=== PATIENT | female | born 1980 | race Caucasian/White ===

== ENCOUNTER 2017-10-20 08:53 | Inpatient (IN) | payer MEDICAID, OTHER ==
[~2017-10-20] VITALS: Ht 162.6 cm; Wt 107.3 kg
[~2017-10-20 08:53] MED LIST: DIVA250T4 PO; FERR325T22 PO; RISP3TAB44 PO
[2017-10-20 11:21] LABS: BASOPHILS # (AUTO) 0.08 K/uL (0.00-0.20); EOSINOPHILS # (AUTO) 0.13 K/uL (0.00-0.70); EOSINOPHILS % (AUTO) 1.49 % (1.0-6.0); HEMATOCRIT 33.2 % (36-46); HEMOGLOBIN 10.6 g/dL (12.0-16.0); LYMPHOCYTES % (AUTO) 24.3 % (22.0-44.0); MEAN CORPUSCULAR HEMOGLOBIN 24.2 pg (26.0-34.0); MEAN CORPUSCULAR VOLUME 76 fL (80-100); MONOCYTES # (AUTO) 0.6 K/uL (0.1-1.0); MONOCYTES % (AUTO) 7.2 % (2.0-9.0); NEUTROPHILS # (AUTO) 5.5 K/uL (1.8-7.7); NEUTROPHILS % (AUTO) 66.1 % (40.0-70.0); PLATELET COUNT (AUTO) 329 K/uL (150-450); RED BLOOD CELL COUNT(AUTO) 4.37 MIL/uL (4.00-5.20); RED CELL DISTRIBUTION WIDTH 17.5 % (11.5-14.5)
[2017-10-20 11:32] LABS: ANION GAP 10 mmol/L (8-16); CALCIUM, TOTAL 9.1 mg/dL (8.8-10.5); CARBON DIOXIDE 27 mmol/L (22-29); CHLORIDE 102 mmol/L (98-107); CREATININE 0.65 mg/dL (0.60-1.30); GLOMERULAR FILTR. RATE CALC > 60 mL/min (>60); GLUCOSE,RANDOM 91 mg/dL (70-110); POTASSIUM 3.9 mmol/L (3.5-5.1); SODIUM SERUM 139 mmol/L (136-145); UREA NITROGEN, BLOOD 10 mg/dL (7-18)
[2017-10-20 11:38] LABS: ALANINE AMINOTRANSFERASE 29 U/L (12-78); ALBUMIN 3.5 g/dL (3.4-5.0); ALKALINE PHOSPHATASE 99 U/L (46-116); ASPARTATE AMINOTRANSFERASE 23 U/L (15-37); BILIRUBIN,TOTAL 0.5 mg/dL (0.1-1.0); TOTAL PROTEIN, SERUM 8.1 g/dL (6.4-8.2)
[2017-10-20 11:58] LABS: AMPHET/METH SCREEN,URINE NEGATIVE (NEGATIVE); BARBITURATE SCREEN, URINE NEGATIVE (NEGATIVE); BENZODIAZEPINES SCREEN,URINE NEGATIVE (NEGATIVE); CANNABINOID SCREEN,URINE NEGATIVE (NEGATIVE); COCAINE SCREEN,URINE NEGATIVE (NEGATIVE); METHADONE SCREEN, URINE NEGATIVE (NEGATIVE); OPIATE SCREEN,URINE NEGATIVE (NEGATIVE)
[2017-10-20 12:01] LABS: PHENCYCLIDINE SCREEN,URINE NEGATIVE (NEGATIVE)
[2017-10-20] MEDS ORDERED: HALOPERIDOL 5 MG TABLET PO PRN (15:00)
[2017-10-20] MEDS ORDERED: ZOLPIDEM TARTRATE 10 MG TABLET PO PRN (15:00)
[2017-10-20] MEDS ORDERED: PERMETHRIN 5% 60 GM CREAM TP ONE (15:30)
[2017-10-20 18:27] VITALS: BP 147/76
[2017-10-20 19:42] VITALS: BP 130/67
[2017-10-20] MEDS: LORazepam 2 MG TABLET PO PRN (20:23)
[2017-10-20] MEDS ORDERED: INFLUENZA VIRUS VACCINE QVS 2017-18 (3YR+)/PF 60 MCG/0.5 ML SYRINGE IM ONE (20:45)
[2017-10-20 21:10] VITALS: BP 130/67
[2017-10-21 00:50] VITALS: BP 137/80
[2017-10-21 08:19] VITALS: BP 133/68
[2017-10-21] MEDS: DIVALPROEX SODIUM 500 MG DR TABLET PO SCH ×2 (09:00→16:44)
[2017-10-21] MEDS: RisperiDONE 2 MG TABLET PO SCH ×2 (09:00→16:44)
[2017-10-21] MEDS: LORazepam 2 MG TABLET PO PRN (09:06)
[2017-10-21] MEDS ORDERED: PERMETHRIN 5% 60 GM CREAM TP ONE (13:30)
[2017-10-21 16:08] VITALS: BP 146/79
[2017-10-22] MEDS: CEPHALEXIN MONOHYDRATE 500 MG CAPSULE PO SCH ×4 (04:42→17:47)
[2017-10-22 07:02] VITALS: BP 110/72
[2017-10-22] MEDS: SULFAMETHOX/TRIMETH DS 800-160 MG/TABLET PO SCH ×2 (08:42→16:59)
[2017-10-22] MEDS: DIVALPROEX SODIUM 500 MG DR TABLET PO SCH ×2 (08:42→16:59)
[2017-10-22] MEDS: RisperiDONE 2 MG TABLET PO SCH ×2 (08:42→16:59)
[2017-10-22 08:48] VITALS: BP 123/83
[2017-10-22 16:39] VITALS: BP 128/74
[2017-10-23] MEDS: CEPHALEXIN MONOHYDRATE 500 MG CAPSULE PO SCH ×4 (00:04→18:23)
[2017-10-23 07:00] VITALS: BP 127/80
[2017-10-23 08:26] VITALS: BP 144/83
[2017-10-23] MEDS: SULFAMETHOX/TRIMETH DS 800-160 MG/TABLET PO SCH ×2 (09:07→16:46)
[2017-10-23] MEDS: RisperiDONE 2 MG TABLET PO SCH ×2 (09:07→16:45)
[2017-10-23] MEDS: DIVALPROEX SODIUM 500 MG DR TABLET PO SCH ×2 (09:07→16:45)
[2017-10-23 16:02] VITALS: BP 128/87
[2017-10-23] MEDS: NEOMYCIN/BACITRACIN/POLYMYXIN B 30 GM OINTMENT TP SCH (16:46)
[2017-10-24] MEDS: CEPHALEXIN MONOHYDRATE 500 MG CAPSULE PO SCH ×4 (00:39→18:07)
[2017-10-24 01:44] VITALS: BP 130/81
[2017-10-24 08:38] VITALS: BP 142/76
[2017-10-24] MEDS: DIVALPROEX SODIUM 500 MG DR TABLET PO SCH ×2 (08:55→16:25)
[2017-10-24] MEDS: SULFAMETHOX/TRIMETH DS 800-160 MG/TABLET PO SCH ×2 (08:55→16:25)
[2017-10-24] MEDS: RisperiDONE 2 MG TABLET PO SCH ×2 (08:55→16:25)
[2017-10-24] MEDS: NEOMYCIN/BACITRACIN/POLYMYXIN B 30 GM OINTMENT TP SCH (08:56)
[2017-10-24 16:12] VITALS: BP 123/73
[2017-10-25] MEDS: CEPHALEXIN MONOHYDRATE 500 MG CAPSULE PO SCH ×4 (00:07→18:04)
[2017-10-25 01:02] VITALS: BP 133/76
[2017-10-25 08:00] VITALS: BP 138/76
[2017-10-25 08:02] VITALS: BP 138/76
[2017-10-25] MEDS: DIVALPROEX SODIUM 500 MG DR TABLET PO SCH ×2 (08:08→16:11)
[2017-10-25] MEDS: SULFAMETHOX/TRIMETH DS 800-160 MG/TABLET PO SCH ×2 (08:09→16:11)
[2017-10-25] MEDS: RisperiDONE 2 MG TABLET PO SCH ×2 (08:09→16:11)
[2017-10-25] MEDS: NEOMYCIN/BACITRACIN/POLYMYXIN B 30 GM OINTMENT TP SCH (08:11)
[2017-10-25 16:06] VITALS: BP 101/61
[2017-10-26 00:15] VITALS: BP 137/86
[2017-10-26] MEDS: CEPHALEXIN MONOHYDRATE 500 MG CAPSULE PO SCH ×4 (00:20→18:39)
[2017-10-26 08:16] VITALS: BP 121/73
[2017-10-26] MEDS: RisperiDONE 2 MG TABLET PO SCH ×2 (08:26→16:20)
[2017-10-26] MEDS: DIVALPROEX SODIUM 500 MG DR TABLET PO SCH ×2 (08:26→16:20)
[2017-10-26] MEDS: NEOMYCIN/BACITRACIN/POLYMYXIN B 30 GM OINTMENT TP SCH (08:27)
[2017-10-26] MEDS: SULFAMETHOX/TRIMETH DS 800-160 MG/TABLET PO SCH ×2 (08:27→16:20)
[2017-10-26 16:33] VITALS: BP 136/90
[2017-10-27] MEDS: CEPHALEXIN MONOHYDRATE 500 MG CAPSULE PO SCH ×4 (00:18→17:49)
[2017-10-27 09:04] VITALS: BP 152/84
[2017-10-27] MEDS: DIVALPROEX SODIUM 500 MG DR TABLET PO SCH ×2 (10:29→17:49)
[2017-10-27] MEDS: RisperiDONE 2 MG TABLET PO SCH ×2 (10:29→17:49)
[2017-10-27] MEDS: SULFAMETHOX/TRIMETH DS 800-160 MG/TABLET PO SCH ×2 (10:29→17:01)
[2017-10-27] MEDS: NEOMYCIN/BACITRACIN/POLYMYXIN B 30 GM OINTMENT TP SCH (10:58)
[2017-10-27 16:49] VITALS: BP 140/77
[2017-10-28] MEDS: CEPHALEXIN MONOHYDRATE 500 MG CAPSULE PO SCH ×5 (00:09→23:39)
[2017-10-28 09:26] VITALS: BP 108/81
[2017-10-28] MEDS: RisperiDONE 2 MG TABLET PO SCH ×2 (11:20→16:43)
[2017-10-28] MEDS: DIVALPROEX SODIUM 500 MG DR TABLET PO SCH ×2 (11:21→16:42)
[2017-10-28] MEDS: SULFAMETHOX/TRIMETH DS 800-160 MG/TABLET PO SCH ×2 (11:21→16:43)
[2017-10-28] MEDS: NEOMYCIN/BACITRACIN/POLYMYXIN B 30 GM OINTMENT TP SCH (11:22)
[2017-10-28 16:08] VITALS: BP 132/81
[2017-10-29] MEDS: CEPHALEXIN MONOHYDRATE 500 MG CAPSULE PO SCH ×4 (06:06→23:57)
[2017-10-29] MEDS: SULFAMETHOX/TRIMETH DS 800-160 MG/TABLET PO SCH ×2 (08:49→16:15)
[2017-10-29] MEDS: DIVALPROEX SODIUM 500 MG DR TABLET PO SCH ×2 (08:49→16:15)
[2017-10-29] MEDS: RisperiDONE 2 MG TABLET PO SCH ×2 (08:50→16:15)
[2017-10-29] MEDS: NEOMYCIN/BACITRACIN/POLYMYXIN B 30 GM OINTMENT TP SCH (08:51)
[2017-10-29 09:25] VITALS: BP 114/58
[2017-10-29 18:52] VITALS: BP 133/60
[2017-10-30] MEDS: CEPHALEXIN MONOHYDRATE 500 MG CAPSULE PO SCH ×3 (06:07→18:45)
[2017-10-30 08:11] VITALS: BP 112/62
[2017-10-30] MEDS: DIVALPROEX SODIUM 500 MG DR TABLET PO SCH ×2 (09:36→16:47)
[2017-10-30] MEDS: SULFAMETHOX/TRIMETH DS 800-160 MG/TABLET PO SCH ×2 (09:36→16:47)
[2017-10-30] MEDS: RisperiDONE 2 MG TABLET PO SCH ×2 (09:37→16:47)
[2017-10-30] MEDS: NEOMYCIN/BACITRACIN/POLYMYXIN B 30 GM OINTMENT TP SCH (09:37)
[2017-10-30] MEDS: MUPIROCIN CALCIUM 2% 22 GM OINTMENT TP SCH ×2 (11:45→16:48)
[2017-10-30 16:39] VITALS: BP 140/72
[2017-10-31] MEDS: CEPHALEXIN MONOHYDRATE 500 MG CAPSULE PO SCH ×4 (00:09→17:01)
[2017-10-31 08:12] VITALS: BP 132/71
[2017-10-31] MEDS: SULFAMETHOX/TRIMETH DS 800-160 MG/TABLET PO SCH ×2 (08:56→17:01)
[2017-10-31] MEDS: DIVALPROEX SODIUM 500 MG DR TABLET PO SCH ×2 (08:56→17:01)
[2017-10-31] MEDS: RisperiDONE 2 MG TABLET PO SCH ×2 (08:56→17:01)
[2017-10-31] MEDS: MUPIROCIN CALCIUM 2% 22 GM OINTMENT TP SCH ×2 (08:57→17:02)
[2017-10-31 19:20] VITALS: BP 126/76
[2017-11-01] MEDS: SULFAMETHOX/TRIMETH DS 800-160 MG/TABLET PO SCH (08:30)
[2017-11-01 08:45] VITALS: BP 121/70
[2017-11-01] MEDS: DIVALPROEX SODIUM 500 MG DR TABLET PO SCH ×2 (11:24→17:01)
[2017-11-01] MEDS: RisperiDONE 2 MG TABLET PO SCH ×2 (11:24→17:02)
[2017-11-01] MEDS: MUPIROCIN CALCIUM 2% 22 GM OINTMENT TP SCH ×2 (11:24→17:02)
[2017-11-01] MEDS ORDERED: RISP2 PO (13:06)
[2017-11-01 20:03] VITALS: BP 129/79
[2017-11-02 09:46] VITALS: BP 126/73
[2017-11-02] MEDS: DIVALPROEX SODIUM 500 MG DR TABLET PO SCH (10:14)
[2017-11-02] MEDS: RisperiDONE 2 MG TABLET PO SCH (10:14)
[2017-11-02] MEDS: MUPIROCIN CALCIUM 2% 22 GM OINTMENT TP SCH (10:14)
== END 2017-11-02 12:15 | disposition home or self-care (01) | DRG 750 ==
LOC: EEVIPCON 08:53 → EMS 08:54 → AHU 15:49 → B2S 22:43 → 3EI 10-26 17:30
PROVIDERS: ADMIT Psychiatry & Neurology Psychiatry; ATTEND Psychiatry & Neurology Psychiatry
PROC: 3E0234Z Introduction of Serum, Toxoid and Vaccine into Muscle, Percutaneous Approach (ICD-10-PCS; principal; 2017-10-20)
DX: F20.0 Paranoid schizophrenia (principal); L03.115 Cellulitis of right lower limb; F32.9 Major depressive disorder, single episode, unspecified; D64.9 Anemia, unspecified; B86 Scabies; F41.9 Anxiety disorder, unspecified; L30.9 Dermatitis, unspecified; Z23 Encounter for immunization; Z59.0 Homelessness
CPT/HCPCS: 87070; 87147; 87205; 99285; G0480